=== PATIENT | female | born 1940 | race Caucasian/White ===

== ENCOUNTER 2018-12-19 07:46 | Day surgery (SDC) | payer MEDICARE, OTHER ==
[2018-12-19] VITALS (8 sets, daily range): BP systolic 122–152; BP diastolic 50–79
[~2018-12-19] VITALS: Ht 167.6 cm; Wt 77.0 kg
[2018-12-19] MEDS ORDERED: normal saline 1,000 ML IV SCH (08:15)
[2018-12-19] MEDS ORDERED: diphenhydrAMINE 25mg capsule PO PRN (08:15)
[2018-12-19] MEDS ORDERED: ceFAZolin 1GM/D5W- ADD-VANTAGE 50 ML IV ONE (09:01)
[2018-12-19] MEDS ORDERED: midazolam 2 mg/2 ml injection ONE ×2 (09:01→09:37)
[2018-12-19] MEDS ORDERED: fentaNYL/PF 50MCG/1 ML 2ML syringe ONE (09:01)
[2018-12-19] MEDS ORDERED: vancomycin 1,000mg inj ONE (09:02)
[2018-12-19] MEDS ORDERED: ceFAZolin 1000mg inj ONE (09:02)
[2018-12-19] MEDS ORDERED: LIDOcaine 1% W/epiNEPHrine 1:100,000 20ml vial ONE (09:02)
[2018-12-19 09:06] LABS: EOSINOPHILS # (AUTO) 0.2 X10'3 (0-0.9); HEMATOCRIT 36.8 % (35.0-45.0); HEMOGLOBIN 12.8 g/dl (12.0-16.0); LYMPHOCYTES # (AUTO) 1.1 X10'3 (1.1-4.8); LYMPHOCYTES % (AUTO) 22.6 % (21-51); MEAN CORPUSCULAR HEMOGLOBIN 31.2 PG (27.0-31.0); MEAN CORPUSCULAR HGB CONC 34.7 g/dL (33.0-36.5); MEAN CORPUSCULAR VOLUME 89.9 FL (78-98); MEAN PLATELET VOLUME 7.8 FL (7.4-10.4); MONOCYTES # (AUTO) 0.5 X10'3 (0-0.9); MONOCYTES % (AUTO) 9.3 % (2-12); NEUTROPHILS % (AUTO) 62.1 % (42-75); PLATELET COUNT 196 X10'3 (140-440); RED BLOOD COUNT 4.09 X10'6 (4.20-5.60); RED CELL DISTRIBUTION WIDTH 13.5 % (11.5-14.5); WHITE BLOOD COUNT 4.9 X10'3 (4.5-11.0)
[2018-12-19 09:13] LABS: ALBUMIN 4.1 G/DL (3.4-5.0); ANION GAP 11 (8-16); BLOOD UREA NITROGEN 12 MG/DL (7-18); BUN/CREATININE RATIO 8.8 (6.6-38.0); CHLORIDE 103 MMOL/L (99-107); CREATININE 1.36 MG/DL (0.40-0.90); GLUCOSE 102 MG/DL (70-104); POTASSIUM 3.4 MMOL/L (3.5-5.1); SODIUM 143 MMOL/L (135-145); TOTAL CARBON DIOXIDE 28.6 MMOL/L (24-32); eGFR 38 ML/MIN
[2018-12-19] MEDS ORDERED: FURO-150 PO (10:10)
[2018-12-19] MEDS ORDERED: DOCU-122 PO (10:10)
[2018-12-19] MEDS ORDERED: CHOL200012 PO (10:10)
[2018-12-19] MEDS ORDERED: ROPI0.2540 PO (10:10)
[2018-12-19] MEDS ORDERED: POLY500P23 PO (10:10)
[2018-12-19] MEDS ORDERED: HYDR200T80 PO (10:10)
[2018-12-19] MEDS ORDERED: FLEC100T2 PO (10:10)
[2018-12-19] MEDS ORDERED: LEVO75TA7 PO (10:10)
[2018-12-19] MEDS ORDERED: IBUP-1986 PO (10:10)
[2018-12-19] MEDS ORDERED: OMEP20CA11 PO (10:10)
[2018-12-19] MEDS ORDERED: WARF1TAB PO (10:10)
[2018-12-19] MEDS ORDERED: NEBI5TAB10 PO (10:10)
[2018-12-19] MEDS ORDERED: CLON0.1T PO (10:10)
[2018-12-19] MEDS ORDERED: WARF-55 PO (10:10)
[2018-12-19] MEDS ORDERED: ketorolac tromethamine 15mg/ml inj. IV ONE (11:00)
[2018-12-19] MEDS ORDERED: pneumococcal 23-VAL P-sac vacc 25 mcg/0.5ml vial IMVAC ONE (16:45)
== END 2018-12-19 13:10 | disposition home or self-care (01) ==
LOC: SSTAY O 07:46
PROVIDERS: ATTEND Internal Medicine Cardiovascular Disease
DX: I49.5 Sick sinus syndrome (principal); I48.0 Paroxysmal atrial fibrillation; M85.80 Other specified disorders of bone density and structure, unspecified site; Z90.49 Acquired absence of other specified parts of digestive tract; M41.84 Other forms of scoliosis, thoracic region
CPT/HCPCS: 33208; 36415; 71045; 80048; 83735; 85025; 85610; 93005; 99152; 99153; C1785; C1894; C1898; J0690; J1885; J2250; J3010; J3370; J7030; A4620